=== PATIENT | male | born 2005 | race Caucasian/White ===

== ENCOUNTER 2023-04-06 18:27 | Emergency (ER) | payer OTHER, SELFPAY ==
[2023-04-06] VITALS (10 sets, daily range): RESP 18–22; BMI 27.3
[2023-04-06] MEDS: diphenhydrAMINE HCL 50 MG/ML VIAL IM (18:45)
[2023-04-06] MEDS: Haloperidol Lactate 5 MG/ML VIAL IM ×2 (18:45)
[2023-04-06] MEDS: LORazepam 2 MG/ML VIAL IM ×2 (18:45→20:35)
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
--- NOTE | 2023-04-06 18:56 | PC.NURSE ---
client came biba from home clonidien dose chanfged recently allegedly client has mrsa hacvwent had enough information from caregiver.
[2023-04-06 21:40] LABS: Amphetamine Screen Urine Not Detected (Not Detect); Barbiturates, Urine Not Detected (Not Detect); Benzodiazepines Screen Urine POSITIVE (Not Detect); Cannabinoid Screen Urine Not Detected (Not Detect); Cocaine Screen Urine Not Detected (Not Detect); Fentanyl, urine Not Detected (Not Detect); Opiate Screen Urine Not Detected (Not Detect); Phencyclidine Screen Urine Not Detected (Not Detect)
[2023-04-06 21:54] LABS: COVID-19 Test Negative (Negative); IDNOW Serial# 9DB6401D
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
[2023-04-07] MEDS: LORazepam 1 MG TABLET 2 MG PO (02:26)
[2023-04-07] MEDS: OLANZapine 5 MG TABLET PO (02:26)
--- NOTE | 2023-04-07 06:07 | PC.NURSE ---
At 0200 patient appears restless and having trouble staying asleep, PRN Olanzapine 5 mg po and Ativan 2 mg PO administered at 0226 with + effect, blood work pending due to patient's inability stay still, behavior unpredictable due to autism, disposition per [facility] is section 12 [facility]DS inpatient bed search, patient is on 1:1 for safety check, medication compliant, will continue to monitor.
[2023-04-07 09:08] VITALS: BP 133/70; PULSE 122; RESP 20; O2SAT 95
--- NOTE | 2023-04-07 10:15 | MHC.CARE ---
CARE Team spoke with RN and Provider. Pt is able to have his tablet due to his dx of ASD. CARE Team notified. Pt mother who will be dropping it off for Pt to utilize.
--- NOTE | 2023-04-07 10:16 | PC.NURSE ---
pt was moved to ED 7 with sitter. This nurse went to meet patient and he was sleeping with the lights off, sitter at bedside, no restraints. PA aware, restraints canceled, IM Ativan canceled.
--- NOTE | 2023-04-07 10:38 | PC.NURSE ---
pt approved to have ipad. pt in bed using ipad now. 1:1 at bedside.
--- NOTE | 2023-04-07 11:06 | MHC.CARE ---
CARE Team received a call from Pts who reports she is patients guardian and can bring in copy of paperwork.
--- NOTE | 2023-04-07 11:42 | PC.NURSE ---
pt unable to respond to [place] suicide questions
--- NOTE | 2023-04-07 12:56 | PHA.MEDREC ---
Pharmacy Consult ? Medication Reconciliation Pharmacy has reviewed the medication reconciliation completed by Cristobal.
--- NOTE | 2023-04-07 13:53 | PC.NURSE ---
pt has been napping or using tablet intermittently, no distress noted. 1:1 at bedside.
[2023-04-07 14:05] VITALS: PULSE 110; RESP 22; O2SAT 96
[2023-04-07] MEDS: Haloperidol Lactate 5 MG/ML VIAL IM (14:05)
[2023-04-07] MEDS: LORazepam 2 MG/ML VIAL IM (14:05)
[2023-04-07] MEDS: diphenhydrAMINE HCL 50 MG/ML VIAL IM (14:05)
--- NOTE | 2023-04-07 14:09 | MHC.CARE ---
Pt is [facility] DDU bedsearch.Plan for psychiatric consult to be completed for medication recommendations while boarding in the ED.
[2023-04-07 14:20] VITALS: BP 132/94; PULSE 106; RESP 22; O2SAT 98
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
[2023-04-07 14:35] VITALS: BP 136/83; PULSE 117; RESP 22; O2SAT 97
--- NOTE | 2023-04-07 14:35 | PC.NURSE ---
Specialty Person visited PT to provide a therapeutic session. PT has ASD and was provided with multiple sensory tools for self soothing and emotional regulation. PT would benefit from sensory tools, music and coloring pages.
[2023-04-07 14:50] VITALS: PULSE 109; RESP 22; O2SAT 98
[2023-04-07 14:52] LABS: MANUAL DIFF FLAG NO
[2023-04-07 15:02] LABS: Basophils Percent Auto 0.3 % (0-2); Eosinophils Percent Auto 0.4 % (0-4); Hematocrit 46.1 % (42.0-52.0); Hemoglobin 15.5 g/dl (14.0-18.0); Imm Gran Abs Auto 0.04 X10*3/uL (0.00-0.03); Imm Gran Pct Auto 0.4 % (0.0-0.4); Lymphocytes Absolute Auto 1.8 X10*3/uL (1.2-4.9); Lymphocytes Percent Auto 18.6 % (20-40); Mean Corpuscular HGB Conc 33.6 g/dl (31.0-36.0); Mean Corpuscular Hemoglobin 28.2 pg (27.0-33.0); Mean Corpuscular Volume 83.8 fL (80.0-98.0); Monocytes Absolute Auto 0.7 X10*3/uL (0.1-1.2); Monocytes Percent Auto 6.9 % (2-11); Neutrophils Absolute Auto 7.2 x10*3/uL (2.0-8.3); Neutrophils Percent Auto 73.4 % (45-73); Platelet Count 289 X10*3/uL (160-400); White Blood Count 9.8 X10*3/uL (4.8-10.8)
[2023-04-07 15:05] VITALS: BP 120/54; PULSE 108; RESP 18; O2SAT 96
[2023-04-07 15:05] LABS: Estimated Average Glucose 94 mg/dL; Hemoglobin A1c % 4.9 % (<6.0)
[2023-04-07] MEDS: Divalproex Sodium Sprinkles 125 MG CAP.DR.SPR 500 MG PO (15:05)
[2023-04-07 15:26] LABS: Alanine Aminotransferase 39 U/L (0-40); Albumin Level 4.4 g/dL (3.5-5.0); Alkaline Phosphatase 109 U/L (39-117); Anion Gap 14 (12-20); Aspartate Amino Transferase 48 U/L (5-37); Bilirubin Direct 0.2 mg/dL (0.0-0.5); Bilirubin Total 0.6 mg/dL (0.0-1.0); Blood Urea Nitrogen 8 mg/dL (9-16); Calcium 9.8 mg/dL (8.4-10.2); Carbon Dioxide 24 mmol/L (22-29); Chloride 108 mmol/L (96-108); Creatinine Clr Calc Pharmacy 153.3; Estimated Glomerular Filt Rate > 60; Ethanol < 10 mg/dL; Glucose Random 103 mg/dL (60-115); Magnesium 2.2 mg/dL (1.6-2.6); Potassium 3.2 mmol/L (3.3-5.1); Sodium 143 mmol/L (135-145); Total Protein 7.4 g/dL (6.5-8.0)
--- NOTE | 2023-04-07 17:07 | MHC.CARE ---
Pt was seen by Miriam Colindres [facility] recommenced starting pt on Depakote, then getting levels drawn. Possibility mother may be able to take pt home tomorrow,CARE team called [facility] to provided update and they reported they are not able to follow pt due to contractual issues pending. Flakita was notified and is reaching out to [facility] for clarification.
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
--- NOTE | 2023-04-07 17:33 | PC.NURSE ---
late entry - see tech Jordan note as well. RN and security called to room by [facility] pt was up, agitates, spitting and swinging. MD ordered IM medications. This nurse and RN Leni gave IM meds. Pt was cooperative during medical clinic manager. Pt's mom and dad came to visit patient. vitals stable, pt calm and cooperative. Pt took depakote PO with pudding. Pt DC without issue in wheelchair with parents.
== END 2023-04-07 17:45 | disposition home or self-care (01) ==
PROVIDERS: Social Worker; Emergency Provider Emergency Medicine; PCP Pediatrics
DX: F84.0 Autistic disorder (principal); R45.6 Violent behavior; Z79.899 Other long term (current) drug therapy
CPT/HCPCS: 36415; 80048; 80076; 80307; 83036; 83735; 84443; 85025; 87635; 96372; 99284; 99285; J1200; J2060

== ENCOUNTER → 2023-04-06 19:50 | Outpatient (BNV) | payer OTHER, SELFPAY | PROVIDERS: Emergency Provider Emergency Medicine; PCP Pediatrics; Visit Provider Social Worker | DX: F84.0 Autistic disorder (principal) | CPT/HCPCS: 99285 ==

== ENCOUNTER 2023-09-05 08:10 | Emergency (ER) | payer OTHER, SELFPAY ==
--- NOTE | ~2023-09-05 | XR_ITS ---
EXAMINATION: Left shoulder and humerus x-ray CLINICAL INFORMATION: Pain COMPARISON: None. TECHNIQUE: 3 views of the left shoulder and humerus. Imaging is limited due to patient's condition. Findings: there is a comminuted minimally displaced fracture of the mid to distal left humeral shaft. There is a butterfly fracture fragment. There is slight valgus angulation of the distal humeral shaft with respect to the more proximal shaft. Elbow joint is not well visualized. Normal left shoulder joint. Soft tissue swelling adjacent to the fracture. XR/XR humerus LT IMPRESSION: Comminuted minimally displaced fracture of the mid and distal humeral shaft.
--- NOTE | ~2023-09-05 | XR_ITS ---
EXAMINATION: Left shoulder and humerus x-ray CLINICAL INFORMATION: Pain COMPARISON: None. TECHNIQUE: 3 views of the left shoulder and humerus. Imaging is limited due to patient's condition. Findings: there is a comminuted minimally displaced fracture of the mid to distal left humeral shaft. There is a butterfly fracture fragment. There is slight valgus angulation of the distal humeral shaft with respect to the more proximal shaft. Elbow joint is not well visualized. Normal left shoulder joint. Soft tissue swelling adjacent to the fracture. XR/XR shoulder LT min 2V IMPRESSION: Comminuted minimally displaced fracture of the mid and distal humeral shaft.
[2023-09-05 08:16] VITALS: BP 136/79; PULSE 85; RESP 18; TEMP 35.8; O2SAT 95; BMI 36.4
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
[2023-09-05] MEDS: Acetaminophen Oral Liquid 650 MG/20.3 ML SOLUTION PO (09:09)
[2023-09-05] MEDS: Morphine Sulfate Oral Sol 10 MG/5 ML SOLUTION 2.5 MG PO ×2 (09:09→11:59)
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
[2023-09-05] MEDS: LORazepam 1 MG TABLET PO (10:50)
[2023-09-05 12:01] VITALS: BP 152/92; PULSE 124; RESP 16; TEMP 36.1; O2SAT 98
[2023-09-05 12:14] VITALS: BP 152/92; PULSE 124; RESP 16; TEMP 36.6; O2SAT 98
== END 2023-09-05 12:14 | disposition home or self-care (01) ==
PROVIDERS: Emergency Provider Emergency Medicine
DX: S42.302A Unspecified fracture of shaft of humerus, left arm, initial encounter for closed fracture (principal); M25.512 Pain in left shoulder; V43.62XA Car passenger injured in collision with other type car in traffic accident, initial encounter; Y93.9 Activity, unspecified; Y92.410 Unspecified street and highway as the place of occurrence of the external cause; Y99.8 Other external cause status
CPT/HCPCS: 73030; 73060; 99283; 99284

== ENCOUNTER 2023-09-11 10:05 | Outpatient (AMB) | payer OTHER, SELFPAY ==
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
== END 2023-09-11 11:00 | disposition home or self-care (01) ==
PROVIDERS: Visit Provider Physician Assistant
DX: S42.352A Displaced comminuted fracture of shaft of humerus, left arm, initial encounter for closed fracture (principal)
CPT/HCPCS: 99203

== ENCOUNTER 2023-09-11 11:04 | Outpatient (REF) | payer OTHER, SELFPAY ==
--- NOTE | ~2023-09-11 | XR_ITS ---
EXAMINATION: XR HUMERUS, LEFT CLINICAL INFORMATION: Humeral fracture COMPARISON: 09/05/2023 humerus radiographs TECHNIQUE: AP and lateral views of the left humerus. FINDINGS: Redemonstration of a comminuted displaced fracture of the mid to distal fibular diaphysis with mild lateral apex angulation of the fracture fragments. No henrik bony callus formation or significant periosteal reaction appreciated. Joint spaces are maintained. Soft tissues are unremarkable. XR/XR humerus LT IMPRESSION: Redemonstration of a comminuted displaced fracture of the mid to distal fibular diaphysis with mild lateral apex angulation of the fracture fragments. No henrik bony callus formation or significant periosteal reaction appreciated.
== END 2023-09-11 11:05 | disposition home or self-care (01) ==
LOC: HO.HOSX 11:04
PROVIDERS: Visit Provider Physician Assistant
DX: S42.352A Displaced comminuted fracture of shaft of humerus, left arm, initial encounter for closed fracture (principal)
CPT/HCPCS: 73060; 99202

== ENCOUNTER 2023-09-13 13:27 | Outpatient (AMB) | payer OTHER, SELFPAY ==
--- NOTE | 2023-09-13 13:33 | MHC.OFFVIS ---
Intake Intake Visit Reasons: O/V fx of humerus, Left DOI 09/05/23-brace changed Allergies No Known Allergies Allergy (Unverified 09/11/23 10:16) HPI O/V fx of humerus, Left DOI 09/05/23-brace changed HPI Details Patient came in because brace was loose [facility] Medical History Autism Social History (Updated 09/11/23 @ 10:20 by Damari Lyle CMA) Household Members: Family Patient Tobacco Use Status: Never used Tobacco Assessment & Plan Assessment & Plan (1) Fracture of humerus: Code(s): S42.309A - Unspecified fracture of shaft of humerus, unspecified arm, initial encounter for closed fracture Plan: brace was re-adjusted. will f/u as planned Coding Level of Care Code Global (54790) Diagnoses Fracture of humerus S42.309A
== END 2023-09-13 13:49 | disposition home or self-care (01) ==
PROVIDERS: Visit Provider Physician Assistant
DX: S42.309A Unspecified fracture of shaft of humerus, unspecified arm, initial encounter for closed fracture (principal)
CPT/HCPCS: 99212

== ENCOUNTER → 2023-09-13 13:27 | Outpatient (BNVA) | payer OTHER, SELFPAY | PROVIDERS: Visit Provider Physician Assistant | DX: S42.302A Unspecified fracture of shaft of humerus, left arm, initial encounter for closed fracture (principal); X58.XXXA Exposure to other specified factors, initial encounter; Y93.9 Activity, unspecified; Y92.9 Unspecified place or not applicable; Y99.9 Unspecified external cause status | CPT/HCPCS: 99212 ==

== ENCOUNTER 2023-09-29 11:05 | Outpatient (AMB) | payer OTHER, SELFPAY ==
[2023-09-29 11:12] VITALS: BMI 36.2
--- NOTE | 2023-09-29 11:12 | A.OFFVIS_ITS ---
Vital Signs 09/29/23 11:12 Height 5 ft 2 in Weight 198 lb BMI 36.2 Intake Visit Reasons: O/V fx of humerus, Left DOI 09/05/23-Brace Adjusted Intake Note: Julius 18 yr old male presents today for his follow up visit for his fx of left humerus DOI 09/05/23. Mother states he is doing well and is not longer taking his pain medication. Allergies No Known Allergies Allergy (Unverified 09/29/23 11:15) HPI HPI O/V fx of humerus, Left DOI 09/05/23-Brace Adjusted: Details: 18-year-old male who returns to the office today for a follow-up of left humerus fracture, 09/05/23. He presents today for brace readjustment. He states he is doing well overall. He has discontinued taking his pain medication. He has no concerns today. [facility] Medical History Autism Social History Household Members: Family Patient Tobacco Use Status: Never used Tobacco Review of Systems Const All systems reviewed & are unremarkable except as noted in HPI and below Physical Exam Vital Signs: BMI result Body Mass Index 36.2 Const General: cooperative, healthy appearing, comfortable, no acute distress, well developed and alert Orientation/consciousness: patient oriented x3 HEENT Head: Yes normal to inspection, Yes normocephalic and Yes atraumatic Eyes General: appearance normal, both eyes and all related structures Resp Effort & Inspection: normal respiratory effort and able to speak in complete sentences Cardio Rate: regular rate Peripheral pulses: Peripheral pulses 2+ throughout GI Palpation (GI): Soft to palpation Skin Lesions: no lesions Rashes: no rashes Neuro General: patient oriented x3 Extrem Other: Left humerus: Skin intact. No open wound or abrasion. He does have improved swelling and ecchymosis over the fracture site. He has full ROM of elbow. No pain with supination or pronation. Medial and radial nerve distribution intact. Assessment & Plan Assessment & Plan (1) Fracture of humerus: Code(s): S42.309A - Unspecified fracture of shaft of humerus, unspecified arm, initial encounter for closed fracture Category: Medical Qualifiers: Encounter type: initial encounter Fracture alignment: displaced Fracture morphology: comminuted Fracture type: closed Humerus Location: shaft Laterality: left Qualified Code(s): S42.352A - Displaced comminuted fracture of shaft of humerus, left arm, initial encounter for closed fracture Plan Brace was readjusted in the office today. He will see us back in 1 week for routine postop appointment, sooner if needed. Patient Instructions: Scribed for Ezequiel Araujo PA-C, by Prasanth Jaeger medical biller coder, on 09/29/2023 at 11:15 AM EST. I, Ezequiel Araujo PA-C, have personally reviewed and agree with the information entered by the scribe.
== END 2023-09-29 11:43 | disposition home or self-care (01) ==
PROVIDERS: Visit Provider Physician Assistant
DX: S42.352A Displaced comminuted fracture of shaft of humerus, left arm, initial encounter for closed fracture (principal)
CPT/HCPCS: 99213

== ENCOUNTER → 2023-09-29 11:05 | Outpatient (BNVA) | payer OTHER, SELFPAY | PROVIDERS: Visit Provider Physician Assistant | DX: S42.302D Unspecified fracture of shaft of humerus, left arm, subsequent encounter for fracture with routine healing (principal) | CPT/HCPCS: 99212 ==

== ENCOUNTER 2023-10-05 09:47 | Outpatient (AMB) | payer OTHER, SELFPAY ==
--- NOTE | 2023-10-05 09:49 | MHC.OFFVIS ---
Vital Signs 10/05/23 09:50 Height 5 ft 2 in Weight 198 lb BMI 36.2 Intake Visit Reasons: O/V fx of humerus, Left DOI 09/05/23 Intake Note: Julius 18 yr old male presents today for his follow up visit for his fx of left humerus DOI 09/05/23. Xrays updated in office. Mother states he has not been wanting to take his pain medication, she is unsure if he has any pain or if he is tolerating his pain. Allergies No Known Allergies Allergy (Unverified 10/05/23 09:50) HPI HPI O/V fx of humerus, Left DOI 09/05/23: Details: 18-year-old autistic male who returns to the office today with his parents for a follow-up of left humerus fracture, 09/05/23. His mother reports he has not been wanting to take his pain medication. She is unsure if patient has any pain or if he is tolerating his pain. His brace also has a bend. [facility] Medical History Autism Social History Household Members: Family Patient Tobacco Use Status: Never used Tobacco Review of Systems Const All systems reviewed & are unremarkable except as noted in HPI and below Physical Exam Vital Signs: BMI result Body Mass Index 36.2 Extrem Other: Left humerus: Skin is intact. Swelling and ecchymosis has resolved. He has no area of bony abnormality. He does not exhibit pain or discomfort with palpation along the fracture site. NVI. Results Reviewed Results Reviewed: X-rays of the left humerus obtained in the office today show redemonstrate a spiral butterfly pattern fracture of the humeral shaft with interval healing and stability of the fracture. Assessment & Plan Assessment & Plan (1) Fracture of humerus: Code(s): S42.309A - Unspecified fracture of shaft of humerus, unspecified arm, initial encounter for closed fracture Category: Medical Qualifiers: Encounter type: initial encounter Fracture alignment: displaced Fracture morphology: comminuted Fracture type: closed Humerus Location: shaft Laterality: left Qualified Code(s): S42.352A - Displaced comminuted fracture of shaft of humerus, left arm, initial encounter for closed fracture Plan I discussed with mom and dad that the humerus is healing well as seen on x-rays. He seems to have no distress in today?s visit and was able to tolerate the exam well. He will continue with his brace for 6 weeks. I encouraged them to make sure he is not lifting or pushing anything to best of they can. If symptoms persist or worsens, they can contact the office for reevaluation, otherwise follow-up in 6 weeks. Orders: Orders XR humerus LT Today S42.309A - Unspecified fracture of shaft of humerus, unspecified arm, initial encounter for closed fracture Patient Instructions: Scribed for Ezequiel Araujo PA-C, by Prasanth Jaeger nuclear medical tech, on 10/05/2023 at 9:45 AM EST. I, Ezequiel Araujo PA-C, have personally reviewed and agree with the information entered by the scribe. Coding Level of Care Code Global (11224) Diagnoses Closed displaced comminuted fracture of shaft of left humerus, initial encounter S42.352A Encounter type: initial encounter Fracture alignment: displaced Fracture morphology: comminuted Fracture type: closed Humerus Location: shaft Laterality: left
[2023-10-05 09:50] VITALS: BMI 36.2
== END 2023-10-05 10:22 | disposition home or self-care (01) ==
PROVIDERS: Visit Provider Physician Assistant
DX: S42.352A Displaced comminuted fracture of shaft of humerus, left arm, initial encounter for closed fracture (principal)
CPT/HCPCS: 99213

== ENCOUNTER 2023-10-05 09:51 | Outpatient (REF) | payer OTHER, SELFPAY ==
--- NOTE | ~2023-10-05 | XR_ITS ---
EXAMINATION: XR HUMERUS, LEFT CLINICAL INFORMATION: Unspecified fracture of shaft of humerus. COMPARISON: September 11, 2023 TECHNIQUE: AP and lateral views of the left humerus, 3 views total. FINDINGS: Redemonstration of a comminuted, displaced fracture of the mid to distal shaft of the humerus with significant interval callus formation. There is increased displacement of fracture fragments. XR/XR humerus LT IMPRESSION: Redemonstration of a comminuted, displaced fracture of the mid to distal shaft of the humerus with significant interval callus formation. There is increased displacement of fracture fragments.
== END 2023-10-05 09:52 | disposition home or self-care (01) ==
LOC: HO.HOSX 09:51
PROVIDERS: Visit Provider Physician Assistant
DX: S42.352D Displaced comminuted fracture of shaft of humerus, left arm, subsequent encounter for fracture with routine healing (principal)
CPT/HCPCS: 73060; 99212

== ENCOUNTER 2023-10-30 12:53 | Outpatient (AMB) | payer OTHER, SELFPAY ==
--- NOTE | 2023-10-30 13:02 | A.OFFVIS_ITS ---
Intake Visit Reasons: OV - left humerus DOI 09/05/23 Intake Note: Julius 18 year old male who presents today with his mother for a follow up of left humerus fracture, DOI 09/05/23. Patient mother states brace keeps falling down. She states he does not complain of pain and patient declines to take any pain medication. Allergies No Known Allergies Allergy (Unverified 10/30/23 13:04) HPI HPI OV - left humerus DOI 09/05/23: Details: 18-year-old male who returns to the office today with his mother for a follow-up of left humerus fracture, 09/05/23. His mother states the brace keeps falling down. She reports patient does not complain of pain and declines to take any pain medication. [facility] Medical History Autism Social History Household Members: Family Patient Tobacco Use Status: Never used Tobacco Review of Systems Const All systems reviewed & are unremarkable except as noted in HPI and below Physical Exam Extrem Other: Left humerus: Skin is intact. Swelling and ecchymosis has resolved. He has no area of bony abnormality. He does not exhibit pain or discomfort with palpation along the fracture site. NVI. Results Reviewed Results Reviewed: X-rays of the left humerus obtained in the office today show redemonstrate a spiral butterfly pattern fracture of the humeral shaft with interval healing and stability of the fracture. Callus formation present. Assessment & Plan Assessment & Plan (1) Fracture of humerus: Code(s): S42.309A - Unspecified fracture of shaft of humerus, unspecified arm, initial encounter for closed fracture Category: Medical Qualifiers: Encounter type: initial encounter Fracture alignment: displaced Fracture morphology: comminuted Fracture type: closed Humerus Location: shaft Laterality: left Qualified Code(s): S42.352A - Displaced comminuted fracture of shaft of humerus, left arm, initial encounter for closed fracture Plan He will continue to use the humerus brace and avoid any impact or contact activities. He will see me back in 5-6 weeks with x-rays, sooner if needed. Orders: Orders XR humerus LT Today S42.309A - Unspecified fracture of shaft of humerus, unspecified arm, initial encounter for closed fracture Patient Instructions: Scribed for Ta-Bette Meuse, PA-C, by Prasanth Jaeger medical malpractice paralegal, on 10/30/2023 at 1:00 PM EST.? I, Ezequiel Araujo PA-C, have personally reviewed and agree with the information entered by the scribe. Coding Level of Care Code Global (06164) Diagnoses Closed displaced comminuted fracture of shaft of left humerus, initial encounter S42.352A Encounter type: initial encounter Fracture alignment: displaced Fracture morphology: comminuted Fracture type: closed Humerus Location: shaft Laterality: left
== END 2023-10-30 13:53 | disposition home or self-care (01) ==
PROVIDERS: Visit Provider Physician Assistant
DX: S42.352A Displaced comminuted fracture of shaft of humerus, left arm, initial encounter for closed fracture (principal)
CPT/HCPCS: 99213

== ENCOUNTER 2023-10-30 15:04 | Outpatient (REF) | payer OTHER, SELFPAY ==
--- NOTE | ~2023-10-30 | XR_ITS ---
EXAMINATION: XR HUMERUS, LEFT CLINICAL INFORMATION: Unspecified fracture of shaft of the humerus, limited imaging due to limited patient cooperation and mobility. COMPARISON: 10/05/2023, 09/11/2023, 2003. TECHNIQUE: AP and lateral views of the left humerus. FINDINGS: Redemonstration of a comminuted, displaced fracture of the [id number] diaphysis of the humerus with interval increased callus formation and improved alignment. XR/XR humerus LT IMPRESSION: Redemonstration of a comminuted, displaced fracture of the [id number] diaphysis of the humerus with interval increased callus formation and improved alignment.
== END 2023-10-30 15:05 | disposition home or self-care (01) ==
LOC: HO.HOSX 15:04
PROVIDERS: Visit Provider Physician Assistant
DX: S42.302D Unspecified fracture of shaft of humerus, left arm, subsequent encounter for fracture with routine healing (principal)
CPT/HCPCS: 73060; 99212

== ENCOUNTER 2023-11-16 13:30 | Outpatient (AMB) | payer OTHER, SELFPAY ==
--- NOTE | 2023-11-16 13:43 | MHC.OFFVIS ---
Vital Signs 11/16/23 13:48 Height 6 ft 2 in Weight 198 lb BMI 25.4 Intake Visit Reasons: OV - left humerus DOI 09/05/23-brace adjustment Intake Note: Julius 18 year old male who presents today with his mother for a brace adjustment s/p left humerus fracture, DOI 09/05/23. Patient mother states brace became loose and is falling down. She also states he has not been wanting to wear the brace and keeps ripping brace off. Allergies No Known Allergies Allergy (Unverified 11/16/23 13:47) HPI HPI OV - left humerus DOI 09/05/23-brace adjustment: Details: 18-year-old male who returns to the office today with his mother for a brace adjustment s/p left humerus fracture, 09/05/23. Patient mother states his cast has become loose and is falling down. Mother also states he has not been wanting to wear the brace and keeps ripping the brace off. Patient has no other concerns. [facility] Medical History Autism Social History Household Members: Family Patient Tobacco Use Status: Never used Tobacco Review of Systems Const All systems reviewed & are unremarkable except as noted in HPI and below Physical Exam Vital Signs: BMI result Body Mass Index 25.4 Extrem Other: Left humerus: Skin is intact. Swelling and ecchymosis has resolved. He has no area of bony abnormality. He does not exhibit pain or discomfort with palpation along the fracture site. NVI. Assessment & Plan Assessment & Plan (1) Fracture of humerus: Code(s): S42.309A - Unspecified fracture of shaft of humerus, unspecified arm, initial encounter for closed fracture Category: Medical Qualifiers: Encounter type: initial encounter Fracture alignment: displaced Fracture morphology: comminuted Fracture type: closed Humerus Location: shaft Laterality: left Qualified Code(s): S42.352A - Displaced comminuted fracture of shaft of humerus, left arm, initial encounter for closed fracture Plan: He was given a new brace today which he will continue to use until his next appt 12/13/23 Patient Instructions: Scribed for Ezequiel Araujo PA-C, by Prasanth Abhang, medical insurance biller, on 11/16/2023 at 1:45 PM EST.? I, Ezequiel Araujo PA-C, have personally reviewed and agree with the information entered by the scribe. Coding Level of Care Code Global (10448) Diagnoses Closed displaced comminuted fracture of shaft of left humerus, initial encounter S42.352A Encounter type: initial encounter Fracture alignment: displaced Fracture morphology: comminuted Fracture type: closed Humerus Location: shaft Laterality: left
[2023-11-16 13:48] VITALS: BMI 25.4
== END 2023-11-16 14:15 | disposition home or self-care (01) ==
PROVIDERS: Visit Provider Physician Assistant
DX: S42.352A Displaced comminuted fracture of shaft of humerus, left arm, initial encounter for closed fracture (principal)
CPT/HCPCS: 99213

== ENCOUNTER → 2023-11-16 13:30 | Outpatient (BNVA) | payer OTHER, SELFPAY | PROVIDERS: Visit Provider Physician Assistant | DX: S42.352A Displaced comminuted fracture of shaft of humerus, left arm, initial encounter for closed fracture (principal); X58.XXXA Exposure to other specified factors, initial encounter; Y93.9 Activity, unspecified; Y92.9 Unspecified place or not applicable; Y99.9 Unspecified external cause status | CPT/HCPCS: 99212 ==

== ENCOUNTER 2023-12-13 12:37 | Outpatient (AMB) | payer OTHER, SELFPAY ==
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
[2023-12-13 13:13] VITALS: BMI 25.4
== END 2023-12-13 13:34 | disposition home or self-care (01) ==
PROVIDERS: Visit Provider Physician Assistant
DX: S42.352A Displaced comminuted fracture of shaft of humerus, left arm, initial encounter for closed fracture (principal)
CPT/HCPCS: 99213

== ENCOUNTER → 2023-12-13 12:37 | Outpatient (BNVA) | payer OTHER, SELFPAY | PROVIDERS: Visit Provider Physician Assistant | DX: S42.352D Displaced comminuted fracture of shaft of humerus, left arm, subsequent encounter for fracture with routine healing (principal) | CPT/HCPCS: 99212 ==

== ENCOUNTER 2023-12-14 10:33 | Outpatient (REF) | payer OTHER, SELFPAY ==
--- NOTE | ~2023-12-14 | XR_ITS ---
EXAMINATION: XR HUMERUS, LEFT CLINICAL INFORMATION: Unspecified fracture of the left mid humeral shaft. COMPARISON: 10/30/2023 TECHNIQUE: AP and lateral views of the left humerus. FINDINGS: Progressive osseous bridging is evident at the left humeral midshaft fracture. Varus angulation is not appreciably changed as compared to 10/05/2023. Apparent difference in alignment as compared to the prior study is likely projectional. No new fractures. Imaged portions of the elbow and shoulder joints are unremarkable. XR/XR humerus LT IMPRESSION: Progressive healing of the left humeral midshaft fracture with unchanged varus angulation.
== END 2023-12-14 10:34 | disposition home or self-care (01) ==
LOC: HO.HOSX 10:33
PROVIDERS: Visit Provider Physician Assistant
DX: S42.302A Unspecified fracture of shaft of humerus, left arm, initial encounter for closed fracture (principal); X58.XXXA Exposure to other specified factors, initial encounter; Y93.9 Activity, unspecified; Y92.9 Unspecified place or not applicable; Y99.9 Unspecified external cause status
CPT/HCPCS: 73060

== ENCOUNTER 2024-01-22 11:04 | Outpatient (REF) | payer OTHER, SELFPAY ==
--- NOTE | ~2024-01-22 | XR_ITS ---
EXAMINATION: XR HUMERUS, LEFT CLINICAL INFORMATION: Pain. COMPARISON: Prior radiographs, most recently 12/13/2023. TECHNIQUE: AP and lateral views of the left humerus. FINDINGS: There is increased bony union of an apex lateral angulated fracture of the distal left humeral shaft. Fracture lines are less visible than was noted previously, with good callus formation. The shoulder and elbow articulations are well-maintained. No focal soft tissue swelling, gas or foreign body is seen. XR/XR humerus LT IMPRESSION: There is improved bony union of a mildly apex lateral angulated fracture of the distal left humeral shaft. Electronically signed by: Jah Kraft MD 02/20/2024 08:09 PM EDT
== END 2024-01-22 11:05 | disposition home or self-care (01) ==
LOC: HO.HOSX 11:04
PROVIDERS: Visit Provider Physician Assistant
DX: R52 Pain, unspecified (principal); S42.352A Displaced comminuted fracture of shaft of humerus, left arm, initial encounter for closed fracture
CPT/HCPCS: 73060; 99212

== ENCOUNTER 2024-01-22 11:42 | Outpatient (AMB) | payer OTHER, SELFPAY ==
--- NOTE | 2024-01-22 11:52 | MHC.OFFVIS ---
Vital Signs 01/22/24 11:54 Height 6 ft 2 in Weight 198 lb BMI 25.4 Intake Visit Reasons: ov-left humerus DOI 09/05/23 Intake Note: Julius a 18 year old male who presents today for a follow up of left humerus frature, DOI 09/05/23. Patient mother reports brace is misshaped and feels like the brace is cracking. Allergies No Known Allergies Allergy (Unverified 01/22/24 11:54) Medication List - Last Reconciled 01/22/24 by Ezequiel Araujo PA-C acetaminophen (Infant's Tylenol) 640 mg (20 mL) PO Q4-6H PRN clonidine HCl 0.1 mg PO BID HPI HPI ov-left humerus DOI 09/05/23: Details: 18-year-old male who returns to the office today for a follow-up of left humerus fracture, 09/05/23. He presents today for a brace change as mother reports his brace is misshaped and feel like the brace is cracking. [facility] Medical History Autism Social History Household Members: Family Patient Tobacco Use Status: Never used Tobacco Review of Systems Const All systems reviewed & are unremarkable except as noted in HPI and below Physical Exam Vital Signs: BMI result Body Mass Index 25.4 Extrem Other: Left humerus: Skin is intact. Swelling and ecchymosis has resolved. He has no area of bony abnormality. He does not exhibit pain or discomfort with palpation along the fracture site. NVI. Results Reviewed Results Reviewed: X-rays of the left humerus obtained in the office today show redemonstrate a spiral butterfly pattern fracture of the humeral shaft with interval healing and stability of the fracture. Callus formation present. Assessment & Plan Assessment & Plan (1) Fracture of humerus: Code(s): S42.309A - Unspecified fracture of shaft of humerus, unspecified arm, initial encounter for closed fracture Category: Medical Qualifiers: Encounter type: initial encounter Fracture alignment: displaced Fracture morphology: comminuted Fracture type: closed Humerus Location: shaft Laterality: left Qualified Code(s): S42.352A - Displaced comminuted fracture of shaft of humerus, left arm, initial encounter for closed fracture Plan We discontinued the thermal molded brace. I explained the family that he should still use caution with impact activities and if symptoms persist or worsen, patient will contact the office and he can come in for x-rays and evaluate, otherwise follow-up as needed. Orders: Orders XR humerus LT Today R52 - Pain, unspecified Patient Instructions: Scribed for Ezequiel Araujo PA-C, by Prasanth Jaeger medical clerical assistant, on 01/22/2024 at 11:30 AM EST.? I, Ezequiel Araujo PA-C, have personally reviewed and agree with the information entered by the scribe. Coding Level of Care Code Est Pt Level 3 (80520) Diagnoses Closed displaced comminuted fracture of shaft of left humerus, initial encounter S42.352A Encounter type: initial encounter Fracture alignment: displaced Fracture morphology: comminuted Fracture type: closed Humerus Location: shaft Laterality: left
[2024-01-22 11:54] VITALS: BMI 25.4
== END 2024-01-22 13:00 | disposition home or self-care (01) ==
PROVIDERS: Visit Provider Physician Assistant
DX: S42.352A Displaced comminuted fracture of shaft of humerus, left arm, initial encounter for closed fracture (principal)
CPT/HCPCS: 99213

== ENCOUNTER 2024-04-04 16:49 | Emergency (ER) | payer OTHER, SELFPAY ==
[2024-04-04 16:57] VITALS: BP 146/99; PULSE 116; RESP 20; TEMP 36.5; O2SAT 95; BMI 27.0
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
[2024-04-04] MEDS: LORazepam 1 MG TABLET 2 MG PO (17:15)
[2024-04-04] MEDS: diphenhydrAMINE HCL 25 MG CAPSULE 50 MG PO (17:15)
[2024-04-04 18:49] VITALS: BP 146/99; PULSE 116; RESP 20; TEMP 36.5; O2SAT 95
== END 2024-04-04 18:50 | disposition other institution (70) ==
PROVIDERS: Emergency Provider Emergency Medicine; PCP Pediatrics
DX: F84.0 Autistic disorder (principal); Z79.899 Other long term (current) drug therapy
CPT/HCPCS: 99283; 99285

== ENCOUNTER 2024-11-19 13:01 | Outpatient (AMB) | payer OTHER, SELFPAY ==
--- NOTE | 2024-11-19 13:07 | A.OFFPC_ITS ---
Vital Signs 11/19/24 13:32 Height 6 ft 2 in Weight 170 lb 6 oz BMI 21.9 BP 136/87 Blood Pressure Location Lt brachial Position Sitting Respiration 16 Pulse 112 H Pulse Source Auscultation Temp 98.2 F Temp Source Temporal Artery Scan Pulse Oximetry (%) 100 Oxygen Delivery Method Room Air Intake Visit Reasons: est care Intake Note: patient here for new patient visit Retail Stock Clerk Required: No Allergies No Known Allergies Allergy (Verified 11/19/24 13:56) Medication List - Last Reconciled 11/19/24 by Zafar Martin CNP hydroxyzine pamoate 50 mg PO BID PRN risperidone 1 mg PO BEDTIME Tobacco use date assessed: 11/19/24 Dental Screening Dental Screen Date: 11/19/24 Did you have a dental visit in the last 12 months?: Yes Did you have a dental problem in the last 6 months where you did not have access to dental care?: No Was dental information given to patient?: Patient has dentist HPI HPI Comments History of Present Illness Details 19-year-old male, accompanied by his mot her and senior care staff, presents to [facility] care. He is mostly non-verbal. His mother is his legal guardian and provides his history. He resides in a senior care. Prior PCP? - [facility] Last office visit/CPE/labs - 03/2024 Acute issue(s) - None Past Medical History - Anxiety, autism spectrum disorder Surgical History - None Family History - Dad: HTN, asthma, thyroid disorder, al cohol abuse - Mom: HTN, HLD, clotting disorder - MGM: HTN, HLD - PGM: HTN, HLD, DM Social History - Nonsmoker. Does not vape. Does not dr ink alcohol. Denies recreational drug use - Has been making healthy dietary choice s. Walk routinely. Generally sleep well Health maintenance - He has never had an eye exam. Referred to Ophthalmology for routine eye exam - Last dental visit was in 05/2024 - Last tetanus vaccine unknown. - He is up-to-date on the flu vaccine. W ill review current record and update as needed [facility]ists [facility] Medical History (Updated 11/19/24 @ 14:35 by Zafar Martin CNP) Anxiety Autism Family History (Updated 11/19/24 @ 13:40 by Mary Coffman MA) Father Alcohol abuse Asthma High blood pressure Thyroid disorder Brother Substance abuse Sister Substance abuse Asthma Mother High blood pressure High cholesterol Clotting disorder Maternal Grandmother High blood pressure High cholesterol Paternal Grandmother High blood pressure High cholesterol Diabetes Social History Household Members: Family Housing: Other (respite) Patient Tobacco Use Status: Never used Tobacco e-Cigarette/Vaping Use: Never Used Second Hand Smoke Exposure: No service: No Current occupational status: disabled Current occupational exposures/hazards: No Cognitive needs: No Hearing needs: No Vision needs: No Questionnaire PHQ-9 Over the last 2 weeks, how often have you been bothered by any of the following problems? 1. Little interest or pleasure in doing things: not at all 2. Feeling down, depressed, or hopeless: not at all 3. Trouble falling or staying asleep, or sleeping too much: not at all 4. Feeling tired or having little energy: not at all 5. Poor appetite or overeating: not at all 6. Feeling bad about yourself - or that you are a failure or have let yourself or your family down: not at all 7. Trouble concentrating on things, such as reading the newspaper or watching television: not at all 8. Moving or speaking so slowly that other people could have noticed. Or the opposite - being so fidgety or restless that you have been moving around a lot more than usual: not at all 9. Thoughts that you would be better off or of hurting yourself in some way: not at all Total score: 0 Depression Screening Interpretation: Negative Depression Screening Done: Yes 18149 - PHQ-9 Billing: Yes Source: Developed by Drs. Chente Ortiz, Bety Arora, Max Marie and colleagues, with an educational rg from [employer]. Thrive Questionnaire Date Thrive assessed: 11/19/24 I am a: Parent/Caregiver What is your living situation today?: I have a steady place to live Within the past 12 months, did the food you bought not last and you didn't have the money to get more?: Never true Within the past 12 months, did you worry whether your food would run out before you got money to buy more?: Never true Do you have trouble paying for medicines?: No Do you have trouble getting transportation to medical appointments?: No Do you have trouble paying your heating and electricity bill?: No Do you have trouble taking care of your child, family member or friend?: No Do you have trouble with day-to-day activities such as bathing, preparing meals, shopping, managing finances, etc.?: No Are you currently unemployed and looking for a job?: No Are you interested in more education?: No Please select the resources that you would like help with: None Currently or been in a relationship where the following occur: No concerns reported THRIVE Score: 0 AUDIT C Alcohol Use Questionnaire (AUDIT-C) 1. How often do you have a drink containing alcohol?: Never 3. How often do you have six or more drinks on one occasion?: Never Total Score: 0 Score Reviewed/Action Taken: Yes NOEMÍ-7 AMB Questionnaire NOEMÍ-7 Date NOEMÍ - 7 assessed: 11/19/24 Feeling nervous, anxious, or on edge: 0 = Not at all Not being able to stop or control worryin = Not at all Worrying too much about different things: 0 = Not at all Trouble relaxin = Not at all Being so restless that it is hard to sit still: 0 = Not at all Becoming easily annoyed or irritable: 0 = Not at all Feeling afraid as if something awful might happen: 0 = Not at all Total NOEMÍ-7 score (0-4 normal; 5-9 mild; 10-14 moderate; 15-21 severe): 0 Source: Developed by Drs. Chente Ortiz, Bety Arora, Max Marie and colleagues, with an educational rg from [employer]. NOEMÍ-7 Assessment Billing NOEMÍ-7 Assessment Tool: NOEMÍ-7 Assessment 19875 Review of Systems Const Details: Denies chills, Denies fatigue, Denies fever(s), Denies headache(s) and Denies weakness HEENT Denies change in vision, Denies dizziness, Denies headache(s), Denies hearing loss, Denies nasal congestion, Denies sinus pain, Denies sinus pressure and Denies sore throat Card Denies chest pain, Denies lightheadedness, Denies dyspnea and Denies other (palpitations) Resp Denies cough, Denies dyspnea and Denies wheezing GI Denies abdominal pain, Denies melena, Denies hematochezia, Denies change in bowel habits, Denies dyspepsia and Denies nausea Denies hematuria and Denies dysuria Musc Denies abnormal gait, Denies myalgias, Denies arthralgias, Denies numbness and Denies tingling Skin/Breast Denies rash, Denies unusual bruising and Denies wounds Neuro Denies abnormal gait, Denies dizziness, Denies headache(s), Denies memory loss, Denies numbness, reports sensory deficits, Denies tingling and Denies weakness Psych Denies anxiety, Denies depression and Denies memory loss Endo Denies cold intolerance, Denies fatigue, Denies heat intolerance, Denies polydipsia and Denies polyuria Chaim/Lymph Denies easy bleeding and Denies easy bruising Aller/Immun Denies wheezing Physical exam (Primary Care) Vital Signs: Last Vital Signs Temp 98.2 F 11/19/24 13:32 Pulse 211 H 11/19/24 13:32 Resp 16 11/19/24 13:32 BP 136/87 11/19/24 13:32 Pulse Ox 100 11/19/24 13:32 Oxygen Delivery Method Room Air 11/19/24 13:32 BMI result Body Mass Index 21.9 Tobacco/Smoking Status: Tobacco use Status Tobacco use date assessed 11/19/24 11/19/24 13:32 Patient Tobacco Use Status Never used Tobacco 11/19/24 13:07 e-Cigarette/Vaping Use Never Used 11/19/24 13:32 PHQ-9: PHQ-9 Score PHQ-9: Total score 0 11/19/24 13:32 Depression Screening Interpretation: Negative Thrive Assessment: Date of Thrive Assessment Date Thrive assessed 11/19/24 11/19/24 13:09 Currently or been in a relationship where the following occur: No concerns reported Const Other: General: no acute distress, well developed, alert, awake, appears anxious Nutritional Appearance: well nourished Orientation/consciousness: Alert and oriented to person [facility] Head: Yes normocephalic and Yes atraumatic Ears: hearing grossly normal bilaterally and TM's normal bilaterally General nose exam: Normal external nose present and Normal nares present Mouth: Normal oral and palatal mucosa present and moist mucous membranes Teeth and gingiva: dentition normal Throat: Yes oropharynx normal Eyes Pupils: Equal, round and reactive pupils present and Pupil accommodation reflex normal EOM: EOMs intact bilaterally Neck Neck: Yes normal visual inspection, Yes no lymphadenopathy and Yes trachea midline Thyroid: Thyroid normal Carotids: no bruits Lymphatic: no lymphadenopathy noted Chest Chest palpation & inspection: normal inspection of the chest Resp Effort & Inspection: normal respiratory effort Auscultation: clear to auscultation bilaterally Cardio Rate: regular rate Rhythm: regular rhythm Heart sounds: S1 normal heart sound present, S2 normal heart sound present, no gallops, no murmurs and no rubs Bruits: no abdominal aortic bruits and no carotid bruits GI Palpation (GI): No Abdominal aortic bruit present, Soft to palpation, nontender, No hepatosplenomegaly present and No Rebound tenderness present Auscultation: normal bowel sounds General: Yes no CVA tenderness Back/Spine/Pelvis Back: no CVA tenderness Cervical Spine: cervical ROM normal and No Cervical spine tenderness Thoracic/Lumbar Spine: thoraco-lumbar ROM normal, No pain with thoraco-lumbar ROM, No thoracic spinal tenderness and No lumbar spinal tenderness Skin General: warm and dry. Normal skin color. Normal skin turgor Lesions: no lesions Rashes: no rashes Trauma: no lacerations or abrasions Wounds: no wounds Nails: normal Neuro General: patient oriented x1, gait normal and CN's II-XI intact bilaterally Cranial nerves: Yes Equal, round and reactive pupils present Cognition (Neuro): Impaired Gait exam (Neuro): Normal gait present Motor exam (neuro): 5/5 motor strength present throughout Sensory Exam: Sensory sensitivities Deep tendon reflexes (DTR's): Right patellar reflex intensity grade: 2+ and Left patellar reflex intensity grade: 2+ Extrem General: Yes normal to inspection, No edema and No calf tenderness Psych Appearance: Appears anxious Affect: normal affect Attitude: cooperative with limited tolerance for direct physical contact Thought process: Impaired Coding Level of Care Code New Pt Prev Care 18-39yr([id number] Diagnoses Physical exam, annual Z00.00 Autism F84.0 Anxiety F41.9 Eye exam, routine Z01.00 Laboratory tests ordered as part of a complete physical exam (CPE) Z00.00 Additional Codes NOEMÍ-7 Assessment Billing - NOEMÍ-7 Assessment Tool: NOEMÍ-7 Assessment 73166 ([id number]) PHQ-9 - 37007 - PHQ-9 Billing: Yes ([id number]) Assessment & Plan Assessment & Plan (1) Physical exam, annual: Code(s): Z00.00 - Encounter for general adult medical examination without abnormal findings Category: Medical Plan: Physical exam interpretation limited by severe autism with sensory sensitivities, motor stereotypies, and nonverbal status. Findings consistent with baseline behaviors per caregiver. Heart rate is 112; likely elevated due to anxiety. Advised to continue current treatment regimen. Healthy diet and routine exercise encouraged. Perform lab work and follow-up for telehealth visit in 2-3 weeks for labs review. Return sooner with symptoms or concerns. Patient's mother verbalized understanding and agreed with the treatment plan. (2) Autism: Code(s): F84.0 - Autistic disorder Category: Medical Plan: Severe autism with sensory sensitivities, motor stereotypies, and nonverbal status. Continue current treatment regimen. Follow-up with psychiatrist as planned. Patient's mother verbalized understanding and agreed with treatment plan. (3) Anxiety: Code(s): F41.9 - Anxiety disorder, unspecified Category: Medical Plan: Continue current treatment regimen. Patient's mother verbalized understanding and agreed with the treatment plan. (4) Eye exam, routine: Code(s): Z01.00 - Encounter for examination of eyes and vision without abnormal findings Category: Medical Plan: He has never had an eye exam. Referred to Ophthalmology for routine eye exam. (5) Laboratory tests ordered as part of a complete physical exam (CPE): Code(s): Z00.00 - Encounter for general adult medical examination without abnormal findings Category: Medical Plan: Fasting labs ordered as part of a complete physical exam. Advised to fast for at least 10 hours before getting labs drawn. May drink water Verbalized understanding and agreed with treatment plan. Orders: Orders Comprehensive [place]. Panel Fast Today Z00.00 - Encounter for general adult medical examination without abnormal findings UA CC w/rflx Micro + Cult Today Z00.00 - Encounter for general adult medical examination without abnormal findings Vitamin D 25-OH Total Today Z00.00 - Encounter for general adult medical examination without abnormal findings Microalbumin, Random (w Creat) Today Z00.00 - Encounter for general adult medical examination without abnormal findings Complete Blood Count Auto Diff Today Z00.00 - Encounter for general adult medical examination without abnormal findings Lipid Panel Today Z00.00 - Encounter for general adult medical examination without abnormal findings TSH reflex Free T4 Today Z00.00 - Encounter for general adult medical examination without abnormal findings Referrals Ophthalmology Referral Z01.00 - Encounter for examination of eyes and vision without abnormal findings
[2024-11-19 13:32] VITALS: BP 136/87; PULSE 112; RESP 16; TEMP 36.8; O2SAT 100; BMI 21.9
== END 2024-11-19 14:23 | disposition home or self-care (01) ==
LOC: HO.HMCFM 13:02
PROVIDERS: PCP Nurse Practitioner Family; Visit Provider Nurse Practitioner Family
DX: Z00.00 Encounter for general adult medical examination without abnormal findings (principal); F84.0 Autistic disorder; F41.9 Anxiety disorder, unspecified

== ENCOUNTER → 2024-11-19 13:01 | Outpatient (BNVA) | payer OTHER, SELFPAY | PROVIDERS: PCP Nurse Practitioner Family; Visit Provider Nurse Practitioner Family | DX: Z00.00 Encounter for general adult medical examination without abnormal findings (principal); F84.0 Autistic disorder; F41.9 Anxiety disorder, unspecified | CPT/HCPCS: 96127; 99385 ==

== ENCOUNTER 2024-12-17 09:47 | Outpatient (REF) | payer OTHER, SELFPAY ==
--- OUTSIDE RECORDS SUMMARY | 2024-12-17 10:24 | XMS_ITS | Encounter Summary ---
Author Organization [facility] Address [address] [place] [id number] Phone Care Team Providers Care Garageman Name Role Phone Macy Bowers NP Primary Care Provider [phone] Encounter Details Date Type Department Care Team (Late st Contact Info) Description 07/21/2011 Documentation [facility] [facility] [address] [place] [address] Family Medicine, Physician [address] [place], [place] [id number] Social History Tobacco Use Types Packs/Day Years Used Date Smoking Tobacco: Never Assessed Sex and Gender Information Value Date Recorded Sex Assigned at Not on file Legal Sex Male 5:22 PM EDT Gender Identity Not on file Sexual Orientation Don't know 08/13/2020 9: 14 AM EST documented as of this encounter Plan of Treatment Not on file documented as of this encounter Visit Diagnoses Not on filedocumented in this encounter Care Teams Garageman Relationship Specialty Start Date End Date Macy Bowers NP [address] [place] [address] PCP - General Pediatrics 01/18/24 05/28/24 documented as of this encounter
[2024-12-17 11:03] LABS: MANUAL DIFF FLAG NO
[2024-12-17 11:06] LABS: Hematocrit 49.6 % (42.0-52.0); Hemoglobin 16.7 g/dl (14.0-18.0); Imm Gran Abs Auto 0.02 X10*3/uL (0.00-0.03); Imm Gran Pct Auto 0.3 % (0.0-0.4); Lymphocytes Absolute Auto 1.3 X10*3/uL (1.2-4.9); Mean Corpuscular HGB Conc 33.7 g/dl (31.0-36.0); Mean Corpuscular Hemoglobin 27.9 pg (27.0-33.0); Mean Corpuscular Volume 82.8 fL (80.0-98.0); NRBC Abs Auto 0.000 X10*3/uL (0.0-0.012); NRBC Pct Auto 0.0 /100WBC (0.0-0.2); Platelet Count 295 X10*3/uL (160-400); Red Blood Count 5.99 X10*6/uL (4.60-5.80); White Blood Count 7.5 X10*3/uL (4.8-10.8)
[2024-12-17 11:41] LABS: Alanine Aminotransferase 21 U/L (0-40); Albumin Level 5.2 g/dL (3.5-5.0); Alkaline Phosphatase 85 U/L (39-117); Anion Gap 14 (12-20); Aspartate Amino Transferase 20 U/L (5-37); Blood Urea Nitrogen 9 mg/dL (9-16); Calcium 9.7 mg/dL (8.4-10.2); Carbon Dioxide 25 mmol/L (22-29); Chloride 106 mmol/L (96-108); Cholesterol 185 mg/dL (<200); Estimated Glomerular Filt Rate > 60; HDL Cholesterol 67 mg/dL (>40); Potassium 3.8 mmol/L (3.3-5.1); Sodium 141 mmol/L (135-145); Total Protein 8.1 g/dL (6.5-8.0); Triglycerides 54 mg/dL (<150)
== END 2024-12-17 09:48 | disposition home or self-care (01) ==
LOC: HO.HMGCLDS 09:47
PROVIDERS: PCP Nurse Practitioner Family; Visit Provider Nurse Practitioner Family
DX: Z00.00 Encounter for general adult medical examination without abnormal findings (principal); E55.9 Vitamin D deficiency, unspecified; E78.00 Pure hypercholesterolemia, unspecified
CPT/HCPCS: 36415; 80053; 80061; 82306; 84443; 85025; 99212

== ENCOUNTER 2024-12-17 13:16 | Outpatient (AMB) | payer OTHER, SELFPAY ==
--- NOTE | 2024-12-17 13:17 | MHC.PC.OV ---
Vital Signs 12/17/24 13:25 Height 6 ft 2 in Weight 170 lb 2 oz BMI 21.8 BP 126/75 Blood Pressure Location Lt brachial Position Sitting Respiration 16 Pulse 112 H Pulse Source Palpation Temp 98.6 F Temp Source Temporal Artery Scan Pulse Oximetry (%) 98 Oxygen Delivery Method Room Air Intake Visit Reasons: Telehealth 2-3 wks labs review Intake Note: patient here for 2-3 wks follow up for labs Allergies No Known Allergies Allergy (Verified 12/17/24 13:20) Tobacco use date assessed: 12/17/24 Dental Screening Dental Screen Date: 12/17/24 Did you have a dental visit in the last 12 months?: Yes Did you have a dental problem in the last 6 months where you did not have access to dental care?: No Was dental information given to patient?: Patient has dentist HPI HPI Comments History of Present Illness Details 19-year-old male, accompanied by [facility] staff, presents for telehealth visit for review of recent lab results. No acute symptoms at this time. [facility] staff request p.denisa Patino for appointments and procedures because it is challenging for the patient to cooperate for his appointments and procedures due to severe anxiety. Tiffany Patino ordered for appointment with the procedures. [facility] Medical History (Updated 12/17/24 @ 13:30 by Zafar Martin CNP) Anxiety Autism Family History (Updated 11/19/24 @ 13:40 by Mary Coffman MA) Father Alcohol abuse Asthma High blood pressure Thyroid disorder Brother Substance abuse Sister Substance abuse Asthma Mother High blood pressure High cholesterol Clotting disorder Maternal Grandmother High blood pressure High cholesterol Paternal Grandmother High blood pressure High cholesterol Diabetes Social History Household Members: Family Housing: Other (respite) Patient Tobacco Use Status: Never used Tobacco e-Cigarette/Vaping Use: Never Used Second Hand Smoke Exposure: No service: No Current occupational status: disabled Current occupational exposures/hazards: No Cognitive needs: No Hearing needs: No Vision needs: No Questionnaire Thrive Questionnaire Date Thrive assessed: 11/19/24 I am a: Parent/Caregiver What is your living situation today?: I have a steady place to live Within the past 12 months, did the food you bought not last and you didn't have the money to get more?: Never true Within the past 12 months, did you worry whether your food would run out before you got money to buy more?: Never true Do you have trouble paying for medicines?: No Do you have trouble getting transportation to medical appointments?: No Do you have trouble paying your heating and electricity bill?: No Do you have trouble taking care of your child, family member or friend?: No Do you have trouble with day-to-day activities such as bathing, preparing meals, shopping, managing finances, etc.?: No Are you currently unemployed and looking for a job?: No Are you interested in more education?: No Please select the resources that you would like help with: None Currently or been in a relationship where the following occur: No concerns reported THRIVE Score: 0 NOEMÍ-7 AMB Questionnaire NOEMÍ-7 Date NOEMÍ - 7 assessed: 11/19/24 Source: Developed by Drs. Chente Ortiz, Bety Arora, Max Marie and colleagues, with an educational rg from [employer]. Review of Systems Const Details: Denies chills, Denies fatigue, Denies fever(s), Denies headache(s) and Denies weakness Cardiac Denies chest pain, Denies claudication, Denies leg edema, Denies lightheadedness, Denies palpitations, Denies dyspnea, Denies dyspnea on exertion, Denies orthopnea and Denies other (Loss of consciousness) Resp Denies cough, Denies excessive phlegm production, Denies dyspnea, Denies dyspnea on exertion, Denies snoring and Denies wheezing Physical exam (Primary Care) BMI result Body Mass Index 21.8 Tobacco/Smoking Status: Tobacco use Status Tobacco use date assessed 11/19/24 12/17/24 13:19 Patient Tobacco Use Status Never used Tobacco 12/17/24 13:19 e-Cigarette/Vaping Use Never Used 12/17/24 13:19 Thrive Assessment: Date of Thrive Assessment Date Thrive assessed 11/19/24 12/17/24 13:19 Currently or been in a relationship where the following occur: No concerns reported Const Other: General: no acute distress and well developed Nutritional Appearance: well nourished Orientation/consciousness: patient oriented x3 HENMT Head: Yes normocephalic and Yes atraumatic Eyes General: appearance normal, both eyes and all related structures Pupils: Equal, round and reactive pupils present EOM: EOMs intact bilaterally Resp Effort & Inspection: normal respiratory effort Auscultation: clear to auscultation bilaterally Cardio Rate: regular rate Rhythm: regular rhythm Heart sounds: S1 normal heart sound present, S2 normal heart sound present, no gallops, no murmurs and no rubs GI Palpation (GI): No Abdominal aortic bruit present, Soft to palpation, nontender, No hepatosplenomegaly present and No Rebound tenderness present Auscultation: normal bowel sounds General: Yes no CVA tenderness Back/Spine/Pelvis Back: no CVA tenderness Cervical Spine: cervical ROM normal and No Cervical spine tenderness Thoracic/Lumbar Spine: thoraco-lumbar ROM normal, No pain with thoraco-lumbar ROM, No thoracic spinal tenderness and No lumbar spinal tenderness Extrem General: Yes normal to inspection, No edema and No calf tenderness Skin General: warm and dry. Normal skin color. Normal skin turgor Neuro General: patient oriented x3, gait normal and no focal neuro deficit Cranial nerves: Yes Equal, round and reactive pupils present Cognition (Neuro): normal cognition Gait exam (Neuro): Normal gait present Sensory Exam: No Sensory deficit (Neuro) Psych Appearance: grossly normal Affect: normal affect Attitude: cooperative Thought process: Normal thought process present Coding Level of Care Code Est Pt Level 4 (29470) Diagnoses Vitamin D deficiency E55.9 Elevated LDL cholesterol level E78.00 Assessment & Plan Assessment & Plan (1) Vitamin D deficiency: Code(s): E55.9 - Vitamin D deficiency, unspecified Category: Medical Plan: Recent vitamin-D level is slightly low, 24.5. Vitamin D3 1000 units daily ordered; advised to take as prescribed. Informed that the sun is a good source of vitamin D3. Performed vitamin-D level blood work in 8 weeks. Will review results and make changes as needed. [facility] staff verbalized understanding and agreed with the plan. (2) Elevated LDL cholesterol level: Code(s): E78.00 - Pure hypercholesterolemia, unspecified Category: Medical Plan: Recent LDL level is slightly elevated, 108. Triglyceride, total cholesterol, and HDL levels are normal. Advised to limit foods high in saturated fat and avoid foods high in trans fat. Routine exercise encouraged. Will monitor lipid panel level annually or if presents with related symptoms or concerns. [facility] staff verbalized understanding and agreed with the plan. Orders: Orders Vitamin D 25-OH Total 8 Weeks E55.9 - Vitamin D deficiency, unspecified Medications: New cholecalciferol (vitamin D3) 25 mcg PO DAILY 90 tabs 3RF 90 days lorazepam (Ativan) 1 mg PO DAILY PRN 10 tabs 0RF anxiety prior to appointments or procedures Patient Instructions: Encouraged to perform urinalysis and urine microalbumin orders.
[2024-12-17 13:25] VITALS: BP 126/75; PULSE 112; RESP 16; TEMP 37; O2SAT 98; BMI 21.8
== END 2024-12-17 13:49 | disposition home or self-care (01) ==
LOC: HO.HMCFM 13:16
PROVIDERS: PCP Nurse Practitioner Family; Visit Provider Nurse Practitioner Family
DX: E55.9 Vitamin D deficiency, unspecified (principal); E78.00 Pure hypercholesterolemia, unspecified

== ENCOUNTER 2025-02-24 15:15 | Outpatient (AMB) | payer OTHER, SELFPAY ==
--- NOTE | 2025-02-24 15:19 | A.OFFPC_ITS ---
Vital Signs 02/24/25 15:23 Height 6 ft 2 in Weight 175 lb BMI 22.5 BP 133/69 Blood Pressure Location Rt brachial Position Sitting Respiration 16 Pulse 90 Pulse Source Pulse Oximeter Temp 98.8 F Temp Source Temporal Artery Scan Pulse Oximetry (%) 98 Oxygen Delivery Method Room Air Intake Visit Reasons: Allergies, requesting allergy meds Intake Note: patient here c/o allergies and requesting medication Non Destructive Evaluation Manager Required: No Allergies No Known Allergies Allergy (Verified 02/24/25 15:22) Tobacco use date assessed: 02/24/25 Dental Screening Dental Screen Date: 02/24/25 Did you have a dental visit in the last 12 months?: Yes Did you have a dental problem in the last 6 months where you did not have access to dental care?: No Was dental information given to patient?: Patient has dentist HPI HPI Comments History of Present Illness Details 19-year-old male, accompanied by group [facility] staff, presents with request for medication for seasonal allergies per [facility] staff. The staff notes that the patient's mother states that the patient has history of seasonal allergies, was on allergy medication in in past, and would like allergy medi cation prescribed again. No acute symptoms at this time. [facility] Medical History (Updated 02/24/25 @ 15:48 by Zafar Martin CNP) Anxiety Autism Family History (Updated 11/19/24 @ 13:40 by Mary Coffman MA) Father Alcohol abuse Asthma High blood pressure Thyroid disorder Brother Substance abuse Sister Substance abuse Asthma Mother High blood pressure High cholesterol Clotting disorder Maternal Grandmother High blood pressure High cholesterol Paternal Grandmother High blood pressure High cholesterol Diabetes Social History Household Members: Family Housing: Other (respite) Patient Tobacco Use Status: Never used Tobacco e-Cigarette/Vaping Use: Never Used Second Hand Smoke Exposure: No service: No Current occupational status: disabled Current occupational exposures/hazards: No Cognitive needs: No Hearing needs: No Vision needs: No Questionnaire Thrive Questionnaire Date Thrive assessed: 11/19/24 I am a: Parent/Caregiver What is your living situation today?: I have a steady place to live Within the past 12 months, did the food you bought not last and you didn't have the money to get more?: Never true Within the past 12 months, did you worry whether your food would run out before you got money to buy more?: Never true Do you have trouble paying for medicines?: No Do you have trouble getting transportation to medical appointments?: No Do you have trouble paying your heating and electricity bill?: No Do you have trouble taking care of your child, family member or friend?: No Do you have trouble with day-to-day activities such as bathing, preparing meals, shopping, managing finances, etc.?: No Are you currently unemployed and looking for a job?: No Are you interested in more education?: No Please select the resources that you would like help with: None Currently or been in a relationship where the following occur: No concerns re ported THRIVE Score: 0 NOEMÍ-7 AMB Questionnaire NOEMÍ-7 Date NOEMÍ - 7 assessed: 11/19/24 Source: Developed by Drs. Chente Ortiz, Bety Arora, Max Marie and colleagues, with an educational rg from [employer]. Review of Systems Const Details: Const Denies chills, Denies fatigue, Denies fever(s), Denies headache(s) and Denies weakness ENT Denies dizziness and Denies headache(s) Card Denies chest pain, Denies lightheadedness, Denies dyspnea and Denies other (Palpitations) Resp Denies cough, Denies dyspnea, Denies wheezing and Denies other ( shortness of breath) GI Denies abdominal pain, Denies melena, Denies hematochezia, Denies change in bowel habits, Denies dyspepsia and Denies nausea Denies hematuria and Denies dysuria Musc Denies abnormal gait, Denies myalgias, Denies arthralgias, Denies numbness and Denies tingling Skin/Breast Denies rash, Denies unusual bruising and Denies wounds Neuro Denies abnormal gait, Denies dizziness, Denies headache(s), Denies memory loss, Denies numbness, Denies Sensory deficit (Neuro), Denies tingling and Denies weakness Psych Denies anxiety, Denies depression, Denies memory loss Endo Denies cold intolerance, Denies fatigue, Denies heat intolerance, Denies polydipsia and Denies polyuria Aller/Immun Denies wheezing Physical exam (Primary Care) Vital Signs: Last Vital Signs Temp 98.8 F 02/24/25 15:23 Pulse 90 02/24/25 15:23 Resp 16 02/24/25 15:23 BP 133/69 02/24/25 15:23 Pulse Ox 98 02/24/25 15:23 Oxygen Delivery Method Room Air 02/24/25 15:23 BMI result Body Mass Index 22.5 Tobacco/Smoking Status: Tobacco use Status Tobacco use date assessed 02/24/25 02/24/25 15:26 Patient Tobacco Use Status Never used Tobacco 02/24/25 15:20 e-Cigarette/Vaping Use Never Used 02/24/25 15:20 Thrive Assessment: Date of Thrive Assessment Date Thrive assessed 11/19/24 02/24/25 15:20 Currently or been in a relationship where the following occur: No concerns reported Const Other: General: no acute distress and well developed Nutritional Appearance: well nourished Orientation/consciousness: patient is alert, unable to assess orientation HENMT Head: Yes normocephalic and Yes atraumatic Eyes General: appearance normal, both eyes and all related structures Pupils: Equal, round and reactive pupils present EOM: EOMs intact bilaterally Resp Effort & Inspection: normal respiratory effort Auscultation: clear to auscultation bilaterally Cardio Rate: regular rate Rhythm: regular rhythm Heart sounds: S1 normal heart sound present, S2 normal heart sound present, no gallops, no murmurs and no rubs GI Palpation (GI): No Abdominal aortic bruit present, Soft to palpation, nontender, No hepatosplenomegaly present and No Rebound tenderness present Auscultation: normal bowel sounds General: Yes no CVA tenderness Back/Spine/Pelvis Back: no CVA tenderness Cervical Spine: cervical ROM normal and No Cervical spine tenderness Thoracic/Lumbar Spine: thoraco-lumbar ROM normal, No pain with thoraco-lumbar ROM, No thoracic spinal tenderness and No lumbar spinal tenderness Extrem General: Yes normal to inspection, No edema and No calf tenderness Skin General: warm and dry. Normal skin color. Normal skin turgor Neuro General: patient alert, unable to assess orientation, gait normal and no focal neuro deficit Cranial nerves: Yes Equal, round and reactive pupils present Cognition (Neuro): normal cognition Gait exam (Neuro): Normal gait present Sensory Exam: No Sensory deficit (Neuro) Psych Appearance: grossly normal Affect: normal affect Attitude: cooperative Thought process: Normal thought process present Coding Level of Care Code Est Pt Level 3 (47445) Diagnoses Seasonal allergies J30.2 Assessment & Plan Assessment & Plan (1) Seasonal allergies: Code(s): J30.2 - Other seasonal allergic rhinitis Category: Medical Plan: Zyrtec 10 mg daily ordered; advised to take as prescribed. Follow-up with symptoms or concerns. [facility] staff verbalized understanding and agreed with the plan. Medications: New cetirizine (Zyrtec) 10 mg PO DAILY 30 tabs 3RF allergy symptoms 30 days
[2025-02-24 15:23] VITALS: BP 133/69; PULSE 90; RESP 16; TEMP 37.1; O2SAT 98; BMI 22.5
--- OUTSIDE RECORDS SUMMARY | 2025-02-24 20:43 | XMS_ITS | Encounter Summary ---
Author Organization [facility] Address [address] [place] [address] Phone Care Team Providers Care Engagement Lead Name Role Phone Macy Bowers NP Primary Care Provider [phone] Encounter Details Date Type Department Care Team (Late st Contact Info) Description 04/25/2014 [place] [facility] [place] [address] [place] [address] Family Medicine, Physician [address] [place], [place] [id number] Social History Tobacco Use Types Packs/Day Years [...] on filedocumented in this encounter Care Teams Engagement Lead Relationship Specialty Start Date End Date Macy Bowers NP [address] [place] [address] PCP - General Pediatrics 01/18/24 05/28/24 documented as of this encounter
--- OUTSIDE RECORDS SUMMARY | 2025-02-24 20:43 | XMS_ITS | Encounter Summary ---
Author Organization [facility] Address [address] [place] [address] Phone Care Team Providers Care Dianetic Counselor Name Role Phone Macy Bowers NP Primary Care Provider Encounter Details Date Type Department Care Team (Late st Contact Info) Description 02/20/2012 Documentation [facility] [place] [address] [place] [address] Family Medicine, Physician [address] [place], [place] [address] Social History Tobacco Use Types Packs/Day Years [...] on filedocumented in this encounter Care Teams Dianetic Counselor Relationship Specialty Start Date End Date Macy Bowers NP [address] [place] [address] PCP - General Pediatrics 01/18/24 05/28/24 documented as of this encounter
--- OUTSIDE RECORDS SUMMARY | 2025-02-24 20:43 | XMS_ITS | Encounter Summary ---
Author Organization [facility] Address [address] [place] [address] Phone Care Team Providers Care Reinforcing Metal Worker Name Role Phone Macy Bowers NP Primary Care Provider [phone] Encounter Details Date Type Department Care Team (Late st Contact Info) Description 07/21/[address] [facility] [place] Family Medicine [address] [place] [address] Family Medicine, Physician [address] [place], [place] [address] Social History Tobacco Use Types Packs/Day Years [...] on filedocumented in this encounter Care Teams Reinforcing Metal Worker Relationship Specialty Start Date End Date Macy Bowers NP [address] [place] [address] PCP - General Pediatrics 01/18/24 05/28/24 documented as of this encounter
--- OUTSIDE RECORDS SUMMARY | 2025-02-24 20:43 | XMS_ITS | Encounter Summary ---
Author Organization [facility] Address [address] [place] [address] Phone Care Team Providers Care Sheet Metal Shop Supervisor Name Role Phone Macy Bowers NP Primary Care Provider [phone] Encounter Details Date Type Department Care Team (Late st Contact Info) Description 10/05/2010 [place] [facility] [place] [address] [place] [address] Family Medicine, Physician [address] [place], [place] [phone] Social History Tobacco Use Types Packs/Day Years [...] on filedocumented in this encounter Care Teams Sheet Metal Shop Supervisor Relationship Specialty Start Date End Date Macy Bowers NP [address] [place] [address] PCP - General Pediatrics 01/18/24 05/28/24 documented as of this encounter
--- OUTSIDE RECORDS SUMMARY | 2025-02-24 20:43 | XMS_ITS | Encounter Summary ---
Author Organization [facility] Address [address] [place] [address] Phone Care Team Providers Care Coroner Transport Technician Name Role Phone Macy Bowers NP Primary Care Provider [phone] Encounter Details Date Type Department Care Team (Late st Contact Info) Description 07/04/2011 Documentation [facility] [place] Medicine [address] [place] [address] Family Medicine, Physician [address] [place], [place] [address] Social History Tobacco Use Types Packs/Day Years [...] on filedocumented in this encounter Care Teams Coroner Transport Technician Relationship Specialty Start Date End Date Macy Bowers NP [address] [place] [address] PCP - General Pediatrics 01/18/24 05/28/24 documented as of this encounter
--- OUTSIDE RECORDS SUMMARY | 2025-02-24 20:43 | XMS_ITS | Encounter Summary ---
Author Organization [facility] Address [address] [place] [address] Phone Care Team Providers Care Cable Mechanic Name Role Phone Macy Bowers NP Primary Care Provider [phone] Encounter Details Date Type Department Care Team (Late st Contact Info) Description 07/21/2011 Documentation [facility] [place] Family Medicine [address] [place] [address] Family Medicine, Physician [address] [place], [place] [address] Social History Tobacco Use Types Packs/Day Years [...] on filedocumented in this encounter Care Teams Cable Mechanic Relationship Specialty Start Date End Date Macy Bowers NP [address] [place] [address] PCP - General Pediatrics 01/18/24 05/28/24 documented as of this encounter
--- OUTSIDE RECORDS SUMMARY | 2025-02-24 20:43 | XMS_ITS | Encounter Summary ---
Author Organization [facility] Address [address] [place] [address] Phone Care Team Providers Care Travelift Operator Name Role Phone Macy Bowers NP Primary Care Provider [phone] Encounter Details Date Type Department Care Team (Late st Contact Info) Description 09/20/2016 [place] [facility] [place] [address] [place] [address] Family Medicine, Physician [address] [place], [place] [address] Social History Tobacco Use Types Packs/Day Years [...] on filedocumented in this encounter Care Teams Travelift Operator Relationship Specialty Start Date End Date Macy Bowers NP [address] [place] [address] PCP - General Pediatrics 01/18/24 05/28/24 documented as of this encounter
--- OUTSIDE RECORDS SUMMARY | 2025-02-24 20:43 | XMS_ITS | Encounter Summary ---
Author Organization [facility] Address [address] [place] [address] Phone Care Team Providers Care Peritoneal Dialysis Registered Nurse Name Role Phone Macy Bowers NP Primary Care Provider [phone] Encounter Details Date Type Department Care Team (Late st Contact Info) Description 01/26/2017 Conversion Encounter [facility] [place] [address] [place] [address] Social History Tobacco Use Types Packs/Day Years [...] on filedocumented in this encounter Care Teams Peritoneal Dialysis Registered Nurse Relationship Specialty Start Date End Date Macy Bowers NP [address] [place] [address] PCP - General Pediatrics 01/18/24 05/28/24 documented as of this encounter
--- OUTSIDE RECORDS SUMMARY | 2025-02-24 20:43 | XMS_ITS | Encounter Summary ---
Author Organization [facility] Address [address] [place] [address] Phone Care Team Providers Care Window Framer Name Role Phone Macy Bowers NP Primary Care Provider [phone] Encounter Details Date Type Department Care Team (Late st Contact Info) Description 10/05/2010 Documentation [facility] [place] [address] [place] [address] Family Medicine, Physician [address] [place], [place] [phone] Social History Tobacco Use Types Packs/Day Years [...] on filedocumented in this encounter Care Teams Window Framer Relationship Specialty Start Date End Date Macy Bowers NP [address] [place] [address] PCP - General Pediatrics 01/18/24 05/28/24 documented as of this encounter
--- OUTSIDE RECORDS SUMMARY | 2025-02-24 20:43 | XMS_ITS | Clinical Summary ---
Author Organization [facility] Address [address] [place] [address] Phone Care Team Providers Care Exhaust And Muffler Repairer Name Role Phone Unavailable Primary Care Provider Unavailabl e Allergies No known active allergies Medications loratadine 5 MG chewable tablet Chew. 7 Active Disposable Gloves (LATEX GLOVES ONE SIZE) miscIndications :Incontinence Indications: Incontinence. Use as needed for hygienic care 120 each 11 9 Active Additional Information Patient taking differently:, Use as needed for hygienic care,(No indications reported), Reported on 02/15/2024 cloNIDine 0.1 MG tablet TAKE 1/2 TABLET BY MOUTH TWICE A DAY MORNING & BEDTIME 3 Active sertraline 25 MG tablet TAKE 1 TABLET BY MOUTH EVERY MORNING WITH A MEAL 4 Active Active Problems Problem Noted Date Diagnosed Date Behavior problem in child 05/17/2017 Overview (11/14/2020): Increasing agitation and grabbing at mom at times. Mom feels pt needs medication. Has psychiatry appt December 2020 (Im not sure where). Assessment & Plan (02/15/2024 10:34 AM EDT): Still seeing psychiatrist q3 months, more often if needed; taking clonidine twice daily and sertraline daily. Assessment & Plan (10/20/2021 10:31 AM EDT): Still seeing psychiatrist, on no meds. Assessment & Plan (11/14/2020 11:33 AM EDT): Increasing agitation and grabbing at mom at times. Mom feels pt needs medication. Has psychiatry appt December 2020 (Im not sure where). Advised to discuss with Dr Patton (? Trial of guanfacine to help with agitation). Will send FYI to Care coordinators and DN Autism spectrum disorder 10/20/2009 Overview (07/30/2019): In special ed, also [facility] services Assessment & Plan (02/15/2024 10:33 AM EDT): Non-verbal young man, very large and strong with autism, very coop with exam today, but can be aggressive and difficult in new/unfamiliar situations. Assessment & Plan (11/30/2023 3:08 PM EDT): Non-verbal young man, very large and strong with autism, very coop with exam today, but can be aggressive and difficult in new/unfamiliar situations. Assessment & Plan (04/11/2023 1:45 PM EDT): Recent aggression toward mom.. to ER. Psych added seroquel, seems to be helping. Assessment & Plan (11/14/2020 11:34 AM EDT): Sounds like there are not many services at home. Family did not want to stay long 2nd to Julius being unpredictable. Speech delay 10/20/2009 Resolved Problems Problem Noted Date Diagnosed Date Resolved Date History of 2019 novel clayton virus disease (COVID-19) 05/19/2021 04/11/2023 Overview (05/19/2021): + test 05/18/21 Coordination of complex care 07/30/2019 10/01/2021 Urinary incontinence 12/17/2018 020 Overview (07/30/2019): 08/01 - now uses the bathroom, no longer in pull ups, needs occ help with wiping. Immunizations Immunization Administration Dates Next Due DTaP 5 05/23/2007, 5,2003,09/15,2003 H1N1 05/18/2009,04/15/2009 HPV Vaccine 9 Valent 07/30/2019,05/17/2017 Hep A, ped/adol 07/30/2019,05/17/2017 Hep B, ped/adol 01/29/2004,2003,2003 Hib (HbOC) 09/29/2004 Hib (PRP-T) 2003,2003,2003 IPV 05/23/2007, 4,2003,07/16 Influenza Split 05/01/2013, 3,03/31/2011,02/18 Influenza, injectable, MDCK, preservative free, quadrivalent 03/11/2022 Influenza, injectable, quadrivalent 04/30/2015,1 06/24/2013 Influenza, injectable, quadr ivalent, preservative free 04/11/2023,04/07/2021,02/19/2020,04/01,04/02/2018,04/06/2017,02/29/2016 Influenza, injectable, trivalent 009,05/26/2008,03/27/2007,05/22,03/16/2005,05/21/2004 Influenza, injectable, triva lent, preservative free 02/15/2024 MMR 05/21/2004 MMRV 05/23/2007 Meningococcal Conj (Menactra) MCV4P 07/30/2019,1 07/03/2015 Pneumococcal Conjugate 09/29/2004,2003,2003,07/16 Tdap 04/30/2015 Varicella 05/21/2004 Family History Medical History Relation Name Comments Hypertension Father Bo Asthma Half-Brother 1 Kalpesh Clifford Depression Half-Brother 1 Kalpesh Horton Anxiety disorder Half-Brother 2 Alfonzo Clifford Asthma Half-Brother 2 Alfonzo Clifford Asthma Half-Brother 3 Nva Enrique Autism Half-Brother 3 Nav Enrique Anxiety disorder Half-Sister Sue Klaus Asthma Half-Sister Sue Klaus Depression Half-Sister Sue Enrique Strabismus Half-Sister Sue Enrique Diabetes Maternal Grandmother Hyperlipidemia Maternal Grandmother Thyroid disease Maternal Grandmother Anxiety disorder Mother Laure Asthma Mother Laure Hyperlipidemia Mother Laure Hypertension Mother Laure Brain cancer Mother's Sister Diabetes Mother's Sister Bipolar disorder Other Diabetes Other Hypertension Other Migraines Other Obesity Other Substance abuse Other Asthma Sister Leni Garibay Depression Sister Leni Garibay Relation Name Status Comments Father Bo Alive Father: Alive a nd well Half-Brother 1 Kalpesh Horton Alive Half-Brother 2 Alfonzo Horton Alive Half-Brother 3 Nav Enrique Alive Brother: As thma, Asthma, Asthma, ADD/ADHD, Asthma Half-Sister Sue Enrique Alive Sister: Alive a nd well, Strabismus, Alive and well Maternal Grandmother Mother Laure Alive Mother: Hyperte nsion, Asthma Mother's Sister Other Family history of Obesity, Family history of Hyperlipidemia, Family history of Diabetes mellitus Sister Leni Garibay Alive Social History Tobacco Use Types Packs/Day Years Used Date Smoking Tobacco: Never Smokeless Tobacco: Never Tobacco Cessation:Counseling Given: Yes Alcohol Use Standard Drinks/Week Comments Never 0 (1 standard drink = 0.6 oz pur e alcohol) Hunger/Food Answer Date Recorded In the last 12 months, did y ou or your family ever eat less than you felt you should because there wasn't enough money for food? No 02/15/2024 Stable Housing Answer Date Recorded Are you worried that in the next 2 months you may not have stable housing? No 02/15/2024 Transportation Concerns Answer Date Rec orded In the last 12 months, have you or your family ever had to go without healthcare because you didn't have a way to get there? No 02/15/2024 Hazards in Home Answer Date Recorded Think about the place you li ve. Do you have problems with any of the following? Pests (mice or roaches), mold, no/not working smoke detectors, water leaks, no window guards. No 2023 Financing Utilities Answer Date Recorde d In the last 12 months, has t he electric, gas, oil, or water company threatened to shut off your services in your home? No 02/15/2024 Safety at Home Answer Date Recorded Are you or your family worried about feeling saf e in your home? No 02/15/2024 Outside Support Answer Date Recorded Do you feel that you need mo re support from other people or programs to help you care for yourself or your family? No 02/15/2024 Understanding Health Concerns Answer Da te Recorded Do you need help understandi ng your or your child's healthcare needs (diagnosis, medications, plan, etc.)? No 02/15/2024 Financing Health Concerns Answer Date R ecorded In the last 12 months, was t here a time when your child needed to see a doctor or get medications or supplies but could not because of cost? No 02/15/2024 Missing School or Work Answer Date Roberto rded Did you or your child miss s chool or work because of a health problem that could have been avoided? No 02/15/2024 Child Education Answer Date Recorded Do you have concerns about y our/your child's learning or behavior in school, preschool, or daycare? No 02/15/2024 Sex and Gender Information Value Date Recorded Sex Assigned at Not on file Legal Sex Male 5:22 PM EDT Gender Identity Not on file Sexual Orientation Don't know 08/13/2020 9: 14 AM EST Last Filed Vital Signs Vital Sign Reading Time Taken Comments Blood Pressure 132/84 02/15/2024 9:11 AM EDT Pulse 110 02/15/2024 9:11 AM EDT Temperature 37.4 C (99.4 F) 02/15/2024 9:11 AM EDT Respiratory Rate - - Oxygen Saturation - - Inhaled Oxygen Concentration - - Weight 93.9 kg (207 lb) 02/15/2024 9:11 AM EDT Height 189.2 cm (6' 2.5 ) 02/15/2024 9:11 AM EDT Body Mass Index 26.22 02/15/2024 9:11 AM EDT Plan of Treatment Health Maintenance Due Date Last Done Comments Men B Vaccine (1 of 2 - Standard) 2019 Influenza Vaccines (#1) 2025 02/15/20 24, 04/11/2023, 03/11/2022, Additional history exists COVID-19 Vaccine (4 - 2024-2 6 season) 2025 09/04/2021, 12/26/2020, 11/25/2020 DTaP,Tdap,and Td Vaccines (7 - Td or Tdap) 04/30/2025 04/30/2015, 05/23/2007, 03/16/2005, Additional history exists Hepatitis B Vaccines Completed 01/29/2004, 2003, 2003 HIB Vaccines Completed 09/29/2004, 11/10, 2003, Additional history exists Pneumococcal Vaccine Completed 09/29/2004, 01/29/2004, 2003, Additional history exists IPV Vaccines Completed 05/23/2007, 01/10, 2003, Additional history exists MMR Vaccines Completed 05/23/2007, 05/21/2004 Varicella Vaccines Completed 05/23/2007, 05/21/2004 HPV Vaccines Completed 07/30/2019, 05/17/2017 Hepatitis A Vaccines Completed 07/30/2019, 05/17/20 17 Meningococcal Vaccine Completed 07/30/2019, 016
== END 2025-02-24 15:47 | disposition home or self-care (01) ==
LOC: HO.HMCFM 15:15
PROVIDERS: PCP Nurse Practitioner Family; Visit Provider Nurse Practitioner Family
DX: J30.2 Other seasonal allergic rhinitis (principal)

== ENCOUNTER 2025-02-24 15:15 | Outpatient (REF) | payer OTHER, SELFPAY | END 2025-02-24 15:16 | disposition home or self-care (01) | LOC: HO.WFDLDS 15:15 | PROVIDERS: PCP Nurse Practitioner Family; Visit Provider Nurse Practitioner Family | DX: Z00.00 Encounter for general adult medical examination without abnormal findings (principal); J30.2 Other seasonal allergic rhinitis; E55.9 Vitamin D deficiency, unspecified | CPT/HCPCS: 36415; 82306; 99212 ==